=== PATIENT | male | born 1950 | race Caucasian/White ===

== ENCOUNTER 2020-11-16 10:25 | Emergency (ER) | payer MEDICARE ==
[2020-11-16 10:35] VITALS: BP 173/82; PULSE 63; TEMP 97; BMI 29.5
[2020-11-16] MEDS ORDERED: METHOCARBAMOL 500 MG TABLET PO ONE (10:50)
[2020-11-16] MEDS ORDERED: LIDOCAINE 5% TOPICAL PATCH TP ONE (10:50)
[2020-11-16] MEDS ORDERED: KETOROLAC TROMETHAMINE 30 MG/1 ML VIAL IM ONE (10:50)
[2020-11-16] MEDS ORDERED: METHOCARBAMOL 500 MG TABLET ONE (11:03)
[2020-11-16] MEDS ORDERED: KETOROLAC TROMETHAMINE 30 MG/1 ML VIAL ONE (11:04)
[2020-11-16] MEDS ORDERED: LIDOCAINE 5% TOPICAL PATCH ONE (11:04)
[2020-11-16 12:04] LABS: BASO % 0.9 % (0-2.0); EOS % 2.1 % (0-4.5); HEMATOCRIT 44.7 % (35.4-49); HEMOGLOBIN 15.4 GM/dL (11.7-16.9); MCH 29.1 pg (25.7-33.7); MCHC 34.5 g/dl (32.0-35.9); MEAN CELL VOLUME 84.4 fl (80-96); MEAN PLT VOLUME 8.7 fl (7.5-11.1); MONO % 12.4 % (3.8-10.2); NEUT % 46.6 % (42.8-82.8); PLATELET COUNT 207 10^3/uL (134-434); RBC 5.29 M/mm3 (4.00-5.60); RDW 14.8 % (11.9-15.9); WHITE BLOOD COUNT 5.3 K/mm3 (4.0-10.0)
[2020-11-16 12:08] LABS: EPI CELLS 1 /uL (0-25.1); HYALINE CASTS 0 /uL (0-3.1); PH,URINE 5.5 (5.0-8.0); URINE APPEARANCE CLEAR; URINE BACTERIA 1 /uL (0-1359); URINE BILIRUBIN NEGATIVE (NEGATIVE); URINE COLOR YELLOW; URINE GLUCOSE (UA) 3+ (NEGATIVE); URINE KETONE NEGATIVE (NEGATIVE); URINE LEUK ESTERASE NEGATIVE (NEGATIVE); URINE NITRITE NEGATIVE (NEGATIVE); URINE PROTEIN 1+ (NEGATIVE); URINE RBC 1 /uL (0-23.9); URINE UROBILINOGEN 0.2 mg/dL (0.2-1.0); URINE WBC 2 /uL (0-25.8)
[2020-11-16 12:25] LABS: CALCIUM 9.2 mg/dL (8.5-10.1)
[2020-11-16 12:26] LABS: ALBUMIN 3.5 g/dl (3.4-5.0); BLOOD UREA NITROGEN 18.5 mg/dL (7-18)
[2020-11-16 12:29] LABS: CREATININE 1.3 mg/dL (0.55-1.3)
[2020-11-16 12:31] LABS: BILIRUBIN,TOTAL 0.7 mg/dL (0.2-1); TOT PROT 8.4 g/dl (6.4-8.2)
== END 2020-11-16 12:36 | disposition home or self-care (01) ==
LOC: JER 10:25
PROC: 3E023GC Introduction of Other Therapeutic Substance into Muscle, Percutaneous Approach (ICD-10-PCS; principal; 2020-11-16)
DX: M62.830 Muscle spasm of back (principal)
CPT/HCPCS: 36415; 76775-TC; 80053; 81003; 85025; 87086; 96372; 99284-25

== ENCOUNTER 2020-11-19 15:52 | Emergency (ER) | payer MEDICARE ==
[2020-11-19 16:03] VITALS: BP 119/65; PULSE 63; TEMP 97.7; BMI 26.9
[2020-11-19] MEDS ORDERED: KETOROLAC TROMETHAMINE 30 MG/1 ML VIAL IVPUSH ONE (16:44)
[2020-11-19] MEDS ORDERED: LIDOCAINE 5% TOPICAL PATCH TP ONE (16:44)
[2020-11-19] MEDS ORDERED: LIDOCAINE 5% TOPICAL PATCH ONE (16:56)
[2020-11-19] MEDS ORDERED: KETOROLAC TROMETHAMINE 30 MG/1 ML VIAL ONE (16:57)
[2020-11-19] MEDS ORDERED: METHOCARBAMOL 500 MG TABLET PO ONE (16:57)
[2020-11-19] MEDS ORDERED: METHOCARBAMOL 500 MG TABLET ONE (16:59)
[2020-11-19 17:57] LABS: BASO % 0.6 % (0-2.0); EOS % 1.8 % (0-4.5); HEMATOCRIT 45.3 % (35.4-49); HEMOGLOBIN 15.3 GM/dL (11.7-16.9); LYMPH % 41.5 % (8-40); MCH 28.2 pg (25.7-33.7); MCHC 33.7 g/dl (32.0-35.9); MEAN CELL VOLUME 83.7 fl (80-96); MEAN PLT VOLUME 8.5 fl (7.5-11.1); MONO % 11.4 % (3.8-10.2); NEUT % 44.7 % (42.8-82.8); PLATELET COUNT 226 10^3/uL (134-434); RBC 5.41 M/mm3 (4.00-5.60); RDW 14.8 % (11.9-15.9); WHITE BLOOD COUNT 7.3 K/mm3 (4.0-10.0)
[2020-11-19 18:15] LABS: CALCIUM 8.7 mg/dL (8.5-10.1)
[2020-11-19 18:16] LABS: ALBUMIN 3.7 g/dl (3.4-5.0); BLOOD UREA NITROGEN 24.6 mg/dL (7-18)
[2020-11-19 18:19] LABS: CREATININE 1.4 mg/dL (0.55-1.3)
[2020-11-19 18:21] LABS: BILIRUBIN,TOTAL 0.8 mg/dL (0.2-1); TOT PROT 8.8 g/dl (6.4-8.2)
[2020-11-19 19:24] LABS: URINE APPEARANCE Clear; URINE BILIRUBIN Negative (NEGATIVE); URINE COLOR Yellow; URINE GLUCOSE (UA) 3+ (NEGATIVE); URINE KETONE Negative (NEGATIVE); URINE LEUK ESTERASE Negative (NEGATIVE); URINE NITRITE Negative (NEGATIVE); URINE PROTEIN Negative (NEGATIVE); URINE UROBILINOGEN 0.2 mg/dL (0.2-1.0)
[2020-11-19 19:25] LABS: EPI CELLS 2 /uL (0-25.1); HYALINE CASTS 0 /uL (0-3.1); URINE BACTERIA 1 /uL (0-1359); URINE RBC 2 /uL (0-23.9); URINE WBC 1 /uL (0-25.8)
== END 2020-11-19 20:06 | disposition home or self-care (01) ==
LOC: JER 15:52
PROC: 3E0333Z Introduction of Anti-inflammatory into Peripheral Vein, Percutaneous Approach (ICD-10-PCS; principal; 2020-11-19)
DX: M54.5 Low back pain (principal); R10.31 Right lower quadrant pain
CPT/HCPCS: 36415; 72131-TC; 72170-TC-FY; 73502-TC-RT-FY; 74177-TC; 80053; 81003; 85025; 87086; 96374; 99285-25; Q9967

== ENCOUNTER 2021-07-07 09:14 | Emergency (ER) | payer MEDICARE ==
[2021-07-07] MEDS ORDERED: SODIUM CHLORIDE 0.9% 500 ML INFUS.BAG IV ONE (09:48)
[2021-07-07] MEDS ORDERED: ACETAMINOPHEN 1000 MG/100 ML BAG IVPB ONE (09:48)
[2021-07-07 09:57] VITALS: BMI 29.7
[2021-07-07] MEDS ORDERED: ONDANSETRON 4 MG/2 ML VIAL IVPUSH ONE (10:16)
[2021-07-07] MEDS ORDERED: BEBTELOVIMAB (EUA) 175 MG/2 ML VIAL IVPUSH ONE (10:31)
[2021-07-07] MEDS ORDERED: ACETAMINOPHEN INJECTION 100 ML IVPB ONE (10:54)
[2021-07-07] MEDS ORDERED: ONDANSETRON 4 MG/2 ML VIAL ONE (10:54)
[2021-07-07 11:50] LABS: BASO % 0.6 % (0-2.0); HEMATOCRIT 42.5 % (35.4-49); HEMOGLOBIN 14.7 GM/dL (11.7-16.9); LYMPH % 12.7 % (8-40); MCH 28.8 pg (25.7-33.7); MCHC 34.5 g/dl (32.0-35.9); MEAN CELL VOLUME 83.3 fl (80-96); MEAN PLT VOLUME 8.6 fl (7.5-11.1); MONO % 17.9 % (3.8-10.2); NEUT % 68.8 % (42.8-82.8); PLATELET COUNT 160 10^3/uL (134-434); RDW 14.3 % (11.9-15.9); WHITE BLOOD COUNT 6.3 K/mm3 (4.0-10.0)
[2021-07-07 12:17] LABS: ALBUMIN 3.8 g/dl (3.4-5.0); BLOOD UREA NITROGEN 25.2 mg/dL (7-18); CALCIUM 9.1 mg/dL (8.5-10.1)
[2021-07-07 12:21] LABS: BILIRUBIN,TOTAL 0.7 mg/dL (0.2-1); CREATININE 1.4 mg/dL (0.55-1.3); TOT PROT 8.4 g/dl (6.4-8.2)
[2021-07-07 14:16] VITALS: BP 155/77; PULSE 66; TEMP 98.7
== END 2021-07-07 14:49 | disposition home or self-care (01) ==
LOC: JER 09:14
PROC: 3E0333Z Introduction of Anti-inflammatory into Peripheral Vein, Percutaneous Approach (ICD-10-PCS; principal; 2021-07-07)
PROC: 3E03329 Introduction of Other Anti-infective into Peripheral Vein, Percutaneous Approach (ICD-10-PCS; 2021-07-07)
PROC: 3E033GC Introduction of Other Therapeutic Substance into Peripheral Vein, Percutaneous Approach (ICD-10-PCS; 2021-07-07)
DX: U07.1 COVID-19 (principal)
CPT/HCPCS: 0241U-QW; 36415; 70450-TC; 71045-TC-FY; 80053; 85025; 93005; 93010; 96374; 96375; 99285-25; M0222; Q0222

== ENCOUNTER 2023-11-11 14:03 | Inpatient (IN) | payer MEDICARE ==
[2023-11-11 14:14] VITALS: BMI 25.0
[2023-11-11 15:28] LABS: EOS % 0.6 % (0-4.5); HEMATOCRIT 42.4 % (35.4-49); HEMOGLOBIN 14.2 GM/dL (11.7-16.9); LYMPH % 35.5 % (8-40); MCH 27.9 pg (25.7-33.7); MCHC 33.4 g/dl (32.0-35.9); MEAN CELL VOLUME 83.6 fl (80-96); MONO % 10.2 % (3.8-10.2); NEUT % 52.7 % (42.8-82.8); RBC 5.07 M/mm3 (4.00-5.60); RDW 14.9 % (11.9-15.9); WHITE BLOOD COUNT 6.5 K/mm3 (4.0-10.0)
[2023-11-11 15:35] LABS: INR 1.06 (0.83-1.09); PROTHROMBIN TIME (PATIENT) 12.2 SEC (9.7-13.0)
[2023-11-11 15:37] LABS: ACTIVATED PTT 28.8 SECONDS (25.2-36.5)
[2023-11-11 15:49] LABS: POTASSIUM 3.7 mmol/L (3.5-5.1)
[2023-11-11 15:51] LABS: CALCIUM 9.7 mg/dL (8.5-10.1)
[2023-11-11 15:51] LABS: PLATELET COUNT 217 10^3/uL (134-434)
[2023-11-11 15:52] LABS: MEAN PLT VOLUME 8.9 fl (7.5-11.1)
[2023-11-11 15:52] LABS: ALBUMIN 3.5 g/dl (3.4-5.0); BLOOD UREA NITROGEN 23.8 mg/dL (7-18); MAGNESIUM 2.4 mg/dL (1.8-2.4)
[2023-11-11 15:55] LABS: CREATININE 1.7 mg/dL (0.55-1.3); PHOSPHOROUS 2.9 mg/dL (2.5-4.9)
[2023-11-11 15:57] LABS: BILIRUBIN,TOTAL 0.4 mg/dL (0.2-1); TOT PROT 8.5 g/dl (6.4-8.2)
[2023-11-11] MEDS ORDERED: LIDOCAINE 5% TOPICAL PATCH TP PRN (17:38)
[2023-11-11 19:03] LABS: URINE APPEARANCE CLEAR; URINE BILIRUBIN NEGATIVE (NEGATIVE); URINE COLOR YELLOW; URINE GLUCOSE (UA) 3+ (NEGATIVE); URINE KETONE NEGATIVE (NEGATIVE); URINE LEUK ESTERASE NEGATIVE (NEGATIVE); URINE NITRITE NEGATIVE (NEGATIVE); URINE PROTEIN NEGATIVE (NEGATIVE); URINE UROBILINOGEN 0.2 mg/dL (0.2-1.0)
[2023-11-11] MEDS: LIDOCAINE PATCH REMOVAL MC SCH (21:50)
[2023-11-11] MEDS: hydrALAZINE HCL 25 MG TABLET (FP) PO SCH (21:50)
[2023-11-11] MEDS: HEPARIN NA (PORCINE) 5,000 UNITS/ML 1ML VIAL SQ SCH (21:50)
[2023-11-12] MEDS: RANOLAZINE E.R. 500 MG TABLET (FP) PO SCH (09:07)
[2023-11-12] MEDS: LOSARTAN 50MG/HCTZ 12.5MG 1 TAB PO SCH (09:07)
[2023-11-12] MEDS: ASPIRIN 81 MG CHEWABLE TABLETS PO SCH (09:08)
[2023-11-12 16:26] LABS: BASO % 1.1 % (0-2.0); EOS % 0.7 % (0-4.5); HEMATOCRIT 45.1 % (35.4-49); LYMPH % 48.2 % (8-40); MCH 27.8 pg (25.7-33.7); MCHC 33.2 g/dl (32.0-35.9); MEAN CELL VOLUME 83.7 fl (80-96); MEAN PLT VOLUME 8.8 fl (7.5-11.1); MONO % 10.8 % (3.8-10.2); NEUT % 39.2 % (42.8-82.8); PLATELET COUNT 224 10^3/uL (134-434); RBC 5.39 M/mm3 (4.00-5.60); WHITE BLOOD COUNT 5.9 K/mm3 (4.0-10.0)
[2023-11-12 16:51] LABS: POTASSIUM 3.8 mmol/L (3.5-5.1)
[2023-11-12 16:54] LABS: CALCIUM 9.6 mg/dL (8.5-10.1)
[2023-11-12 16:55] LABS: ALBUMIN 3.6 g/dl (3.4-5.0); BLOOD UREA NITROGEN 19.6 mg/dL (7-18); MAGNESIUM 2.4 mg/dL (1.8-2.4)
[2023-11-12 16:58] LABS: CREATININE 1.3 mg/dL (0.55-1.3)
[2023-11-12 16:59] LABS: BILIRUBIN,TOTAL 0.6 mg/dL (0.2-1)
[2023-11-12 17:00] LABS: TOT PROT 8.7 g/dl (6.4-8.2)
[2023-11-13] MEDS: metoPROLOL SUCCINATE 25 MG TAB.SR.24H (FP) PO SCH (10:11)
[2023-11-15 09:29] LABS: HEMATOCRIT 42.6 % (35.4-49); HEMOGLOBIN 14.1 GM/dL (11.7-16.9); MCH 28.1 pg (25.7-33.7); MCHC 33.1 g/dl (32.0-35.9); MEAN CELL VOLUME 85.1 fl (80-96); MEAN PLT VOLUME 9.3 fl (7.5-11.1); PLATELET COUNT 209 10^3/uL (134-434); RBC 5.01 M/mm3 (4.00-5.60); RDW 14.7 % (11.9-15.9)
[2023-11-15] MEDS ORDERED: REGADENOSON 0.4 MG/5 ML PRE-FILLED SYRINGE IVPUSH ONE (09:33)
[2023-11-15 09:54] LABS: POTASSIUM 3.7 mmol/L (3.5-5.1)
[2023-11-15 10:17] LABS: CALCIUM 9.2 mg/dL (8.5-10.1)
[2023-11-15] MEDS: REGADENOSON 0.4 MG/5 ML PRE-FILLED SYRINGE IVPUSH ONE (10:17)
[2023-11-15 10:18] LABS: ALBUMIN 3.4 g/dl (3.4-5.0); BLOOD UREA NITROGEN 27.2 mg/dL (7-18); MAGNESIUM 2.5 mg/dL (1.8-2.4)
[2023-11-15 10:21] LABS: CREATININE 1.4 mg/dL (0.55-1.3)
[2023-11-15 10:22] LABS: BILIRUBIN,TOTAL 0.8 mg/dL (0.2-1); TOT PROT 7.9 g/dl (6.4-8.2)
[2023-11-15 15:31] VITALS: BP 121/67; PULSE 60; RESP 18; TEMP 98.4
== END 2023-11-15 17:40 | disposition home or self-care (01) | DRG 309 ==
LOC: JER 14:03 → JERBED 16:35 → OBSVTOIN 17:39 → J4W 19:30
PROVIDERS: ADMIT Family Medicine; ATTEND Family Medicine
DX: R00.1 Bradycardia, unspecified (principal); I13.0 Hypertensive heart and chronic kidney disease with heart failure and stage 1 through stage 4 chronic kidney disease, or unspecified chronic kidney disease; I50.22 Chronic systolic (congestive) heart failure; I10 Essential (primary) hypertension; E78.5 Hyperlipidemia, unspecified; N18.9 Chronic kidney disease, unspecified
CPT/HCPCS: 36415; 71045-TC-FY; 78452-TC; 80053; 80061; 81003; 82570; 83735; 84100; 84156; 84300; 84443; 84484; 85025; 85027; 85610; 85730; 87086; 93005; 93010; 93017; 93306-TC; 99285-25; A9502; G0378; J1644; J2785

== ENCOUNTER 2024-10-16 11:28 | Emergency (ER) | payer MEDICARE, OTHER ==
[2024-10-16 11:36] VITALS: PULSE 81; RESP 18; TEMP 98.3; BMI 25.6
[2024-10-16 11:38] VITALS: BP 182/98
[2024-10-16] MEDS ORDERED: ACETAMINOPHEN 500 MG TABLET (FP) ONE (12:30)
[2024-10-16] MEDS ORDERED: METHOCARBAMOL 500 MG TABLET ONE (12:30)
[2024-10-16] MEDS ORDERED: LIDOCAINE 5% TOPICAL PATCH ONE (12:32)
[2024-10-16] MEDS: METHOCARBAMOL 500 MG TABLET PO ONE (12:35)
[2024-10-16] MEDS: ACETAMINOPHEN 500 MG TABLET (FP) PO ONE (12:36)
[2024-10-16] MEDS: LIDOCAINE 5% TOPICAL PATCH TP ONE (12:36)
[2024-10-16] MEDS ORDERED: LIDOCAINE PATCH REMOVAL MC ONE (22:00)
== END 2024-10-16 15:24 | disposition home or self-care (01) ==
LOC: JER 11:28
DX: M62.830 Muscle spasm of back (principal); M54.50 Low back pain, unspecified; G89.29 Other chronic pain
CPT/HCPCS: 72100-TC-FY; 99283-25